=== PATIENT | female | born 1985 | race Caucasian/White ===

== ENCOUNTER → 2016-12-03 | Outpatient (REF) | payer OTHER, MEDICAID | LOC: M SFHCLERA 17:48 | PROVIDERS: ATTEND Physician Assistant | DX: J02.9 Acute pharyngitis, unspecified (principal) ==

== ENCOUNTER → 2017-01-14 | Outpatient (REF) | payer OTHER, MEDICAID | LOC: M SFHCLERA 15:34 → EEVIPCON 15:34 | PROVIDERS: ATTEND Physician Assistant | DX: N30.01 Acute cystitis with hematuria (principal) ==

== ENCOUNTER 2017-03-28 12:54 | Emergency (ER) | payer MEDICAID, OTHER ==
[~2017-03-28] VITALS: Ht 160 cm; Wt 57.1 kg
[2017-03-28] MEDS ORDERED: IBUP-1114 PO (13:21)
[2017-03-28] MEDS ORDERED: AMOX400S2 PO (14:55)
[2017-03-28 15:28] VITALS: BP 110/67
== END 2017-03-28 15:29 | disposition home or self-care (01) ==
LOC: M ED 12:54
DX: J02.0 Streptococcal pharyngitis (principal); Z87.891 Personal history of nicotine dependence

== ENCOUNTER → 2018-08-17 | Outpatient (REF) | payer MEDICAID, OTHER ==
[~2018-08-17] MED LIST: AMOX400S2 PO; IBUP-1114 PO
[2018-08-17 16:35] LABS: INFLUENZA A AMPLIFICATION NEGATIVE (NEGATIVE); INFLUENZA B AMPLIFICATION NEGATIVE (NEGATIVE)
== END ==
LOC: M LAB REF 15:28
PROVIDERS: ATTEND Physician Assistant
DX: J11.1 Influenza due to unidentified influenza virus with other respiratory manifestations (principal)

== ENCOUNTER → 2018-10-16 | Outpatient (REF) | payer OTHER ==
[~2018-10-16] MED LIST changes: +CITA-230; +OSEL75CA2
[2018-10-16 13:20] LABS: INFLUENZA A AMPLIFICATION POSITIVE (NEGATIVE); INFLUENZA B AMPLIFICATION NEGATIVE (NEGATIVE)
== END ==
LOC: M LAB REF 11:51
PROVIDERS: ATTEND Physician Assistant Medical
DX: J11.1 Influenza due to unidentified influenza virus with other respiratory manifestations (principal)

== ENCOUNTER 2018-10-19 11:01 | Emergency (ER) | payer OTHER ==
[~2018-10-19] VITALS: Ht 162.6 cm; Wt 56.8 kg
[~2018-10-19 11:01] MED LIST changes: -CITA-230; -OSEL75CA2
[2018-10-19 11:02] VITALS: BP 158/92
[2018-10-19] MEDS ORDERED: CITA20TA7 (11:08)
[2018-10-19] MEDS ORDERED: OSEL75CA2 (11:08)
== END 2018-10-19 12:09 | disposition home or self-care (01) ==
LOC: M ED 11:01
DX: N90.89 Other specified noninflammatory disorders of vulva and perineum (principal); F32.9 Major depressive disorder, single episode, unspecified; F41.9 Anxiety disorder, unspecified; Z88.8 Allergy status to other drugs, medicaments and biological substances

== ENCOUNTER → 2019-10-03 | Outpatient (REF) | payer OTHER ==
[~2019-10-03] MED LIST changes: +CITA20TA7; +OSEL75CA2
[2019-10-03 13:46] LABS: INFLUENZA A AMPLIFICATION NEGATIVE (NEGATIVE); INFLUENZA B AMPLIFICATION NEGATIVE (NEGATIVE)
== END ==
LOC: M LAB REF 12:50
PROVIDERS: ATTEND Physician Assistant
DX: J11.1 Influenza due to unidentified influenza virus with other respiratory manifestations (principal)